=== PATIENT | female | born 1965 | race African-American/Black ===

== ENCOUNTER 2022-05-10 01:06 | Inpatient (IN) | payer MEDICAID ==
[2022-05-10] VITALS (54 sets, daily range): BP systolic 78–127; BP diastolic 50–71
[~2022-05-10] VITALS: Ht 170.2 cm; Wt 92.7 kg
[2022-05-10 01:40] LABS: BASOPHILS % 0.3 % (0.0-2.0); EOSINOPHILS % 0.6 % (0.0-5.0); HEMATOCRIT. 35.2 % (36.0-48.0); HEMOGLOBIN. 11.7 g/dL (12.0-16.0); LYMPHOCYTES % 12.4 % (20.0-50.0); MEAN CORPUSCULAR HEMOGLOBIN 30.1 pg (28.0-32.0); MEAN CORPUSCULAR VOLUME 90.6 fL (81.0-99.0); MEAN PLATELET VOLUME 9.4 fl (7.4-10.4); NEUTROPHILS % 83.7 % (40.0-76.0); PLATELET 235 x1000/uL (130-400); RED BLOOD CELL COUNT 3.89 mill/uL (4.2-5.4); RED CELL DISTRIBUTION WIDTH 13.3 % (11.6-14.6)
[2022-05-10 01:54] LABS: CHLORIDE 106 mEq/L (98-107)
[2022-05-10 02:02] LABS: ETHANOL BLOOD < 10 mg/dL
[2022-05-10] MEDS ORDERED: MIDAZOLAM 100MG/100ML PMX 100 ML IV PRN (02:15)
[2022-05-10] MEDS ORDERED: MIDAZOLAM HCL 100 MG in SODIUM CHLORIDE 0.9% 100 ML IV PRN (02:30)
[2022-05-10] MEDS ORDERED: DEXAMETHASONE 10 MG/ML VIAL IV NR (03:30)
[2022-05-10] MEDS ORDERED: MANNITOL 12.5G (25%) VIAL 50ML IV NR (03:30)
[2022-05-10] MEDS: LEVETIRACETAM 500MG PREMIX 100 ML IV NR ×2 (03:30→04:16)
[2022-05-10] MEDS ORDERED: LEVETIRACETAM 500MG PREMIX 100 ML IV ONE (03:30)
[2022-05-10] MEDS ORDERED: MANNITOL 12.5G (25%) VIAL 50ML IV ONE (04:00)
[2022-05-10] MEDS ORDERED: MANNITOL 20% (20GM/100ML) BAG 500ML PREMIX IV NR (04:00)
[2022-05-10 04:03] LABS: BG BASE EXCESS -0.8 mmol/L (-2.0-2.0); BG CARBOXYHEMOGLOBIN 2.2 % (0.5-1.5); BG DEOXYHEMOGLOBIN 0.9 % (0.0-5.0); BG FRACTION INSPIRED OXYGEN 100; BG HCO3 ACT 24.2 mmol/L (22.0-26.0); BG METHEMOGLOBIN 0.2 % (0.0-1.5); BG OXYGEN SATURATION 99.1 % (92.0-98.5); BG OXYHEMOGLOBIN 96.7 % (94.0-97.0); BG PH 7.388 (7.350-7.450); BG PO2 217.3 mmHg (75.0-100.0); BG SAMPLE SITE RIGHT BRACHIAL; BG TOTAL HEMOGLOBIN 12.5 g/dL (12.0-18.0); BG TOTAL RESPIRATORY RATE 16 b/min; BG VENT MODE VENT - AC
[2022-05-10] MEDS ORDERED: IOHEXOL-350 100 ML BOTTLE ONE (04:08)
[2022-05-10] MEDS ORDERED: LEVETIRACETAM 500MG PREMIX 100 ML IV NR (04:30)
[2022-05-10 04:52] LABS: CLARITY URINE CLEAR (CLEAR); COLOR URINE YELLOW (YELLOW); KETONES URINE NEGATIVE (NEGATIVE); LEUKOCYTE ESTERASE URINE NEGATIVE (NEGATIVE); NITRITE URINE NEGATIVE (NEGATIVE); OCCULT BLOOD URINE 2+ (NEGATIVE); PH URINE 7.5 (4.5-8.0); PROTEIN URINE 3+ (NEGATIVE); SPECIFIC GRAVITY URINE 1.011 (1.005-1.030); UROBILINOGEN URINE 0.2 E.U./dL (0.2-1.0)
[2022-05-10 05:04] LABS: *AMPHETAMINES SCREEN URINE NEGATIVE (NEGATIVE); *BARBITURATES SCREEN URINE NEGATIVE (NEGATIVE); *BENZODIAZEPINES SCREEN URINE NEGATIVE (NEGATIVE); *COCAINE SCREEN URINE PRESUMTIVE POSITIVE (NEGATIVE); CANNABINOID URINE SCREEN NEGATIVE (NEGATIVE); METHADONE URINE SCREEN NEGATIVE (NEGATIVE); OPIATES URINE SCREEN NEGATIVE (NEGATIVE); PHENCYCLIDINE URINE SCREEN NEGATIVE (NEGATIVE)
[2022-05-10] MEDS ORDERED: CLONIDINE 0.1MG TABLET PO PRN (05:45)
[2022-05-10] MEDS ORDERED: NICARDIPINE 50 MG in SODIUM CHLORIDE 0.9% 230 ML IV PRN (05:45)
[2022-05-10] MEDS ORDERED: LABETALOL HCL 100 MG in DEXT 5% WATER 80 ML IV PRN (05:45)
[2022-05-10] MEDS ORDERED: LEVETIRACETAM 500 MG in SODIUM CHLORIDE 0.9% 100 ML IV SCH (05:45)
[2022-05-10] MEDS ORDERED: ACETAMINOPHEN 650MG SUPP PR PRN (05:45)
[2022-05-10] MEDS ORDERED: DEXTROSE 50% WATER 50ML SYRINGE IV PRN (05:45)
[2022-05-10] MEDS ORDERED: KCL 20MEQ/100ML PREMIX 100 ML IV NR (06:30)
[2022-05-10] MEDS ORDERED: DEXTROSE 5% IV PRN (06:30)
[2022-05-10] MEDS: BLOOD SUGAR DIAGNOSTIC STRIP TEST SCH ×4 (06:30→23:19)
[2022-05-10] MEDS ORDERED: LABETALOL HCL IV PRN (06:30)
[2022-05-10] MEDS ORDERED: WATER IV PRN (06:30)
[2022-05-10] MEDS: INSULIN LISPRO 100 UNITS/ML SUBCUT SCH ×4 (07:00→23:19)
[2022-05-10 07:43] LABS: BG BASE EXCESS 1.3 mmol/L (-2.0-2.0); BG CARBOXYHEMOGLOBIN 0.8 % (0.5-1.5); BG DEOXYHEMOGLOBIN 1.3 % (0.0-5.0); BG FRACTION INSPIRED OXYGEN 60; BG HCO3 ACT 23.1 mmol/L (22.0-26.0); BG METHEMOGLOBIN 0.3 % (0.0-1.5); BG OXYGEN SATURATION 98.7 % (92.0-98.5); BG OXYHEMOGLOBIN 97.6 % (94.0-97.0); BG PCO2 27.9 mmHg (35.0-45.0); BG PH 7.536 (7.350-7.450); BG PO2 150.9 mmHg (75.0-100.0); BG SAMPLE SITE RIGHT RADIAL; BG TOTAL HEMOGLOBIN 11.2 g/dL (12.0-18.0); BG VENT MODE VENT - AC/VC
[2022-05-10] MEDS ORDERED: ETOMIDATE 2MG/ML 10ML VIAL IV ONE (07:53)
[2022-05-10] MEDS ORDERED: VECURONIUM BROMIDE 10 MG/VIAL IV ONE (07:53)
[2022-05-10] MEDS ORDERED: SODIUM CHLORIDE 0.9% 10ML VIAL ONE (07:53)
[2022-05-10] MEDS ORDERED: P20 MT (10:40)
[2022-05-10] MEDS ORDERED: AMLO10TA80 MT (10:40)
[2022-05-10] MEDS ORDERED: ACYC200C31 PO (10:40)
[2022-05-10] MEDS ORDERED: HYDR-4134 MT (10:40)
[2022-05-10] MEDS: FAMOTIDINE 20MG/2ML VIAL IV SCH (11:02)
[2022-05-10] MEDS: DEXT 5%/0.45% NACL 1000ML 1,000 ML IV SCH (11:03)
[2022-05-10] MEDS: KCL 20MEQ/100ML PREMIX 100 ML IV NR ×2 (11:03→12:57)
[2022-05-10] MEDS ORDERED: NOREPINEPHRINE 8 MG in DEXT 5% WATER 242 ML IV PRN (16:30)
[2022-05-10 18:52] LABS: HEMATOCRIT. 28.4 % (36.0-48.0); HEMOGLOBIN. 9.4 g/dL (12.0-16.0); MEAN CORPUSCULAR HEMOGLOBIN 29.9 pg (28.0-32.0); MEAN CORPUSCULAR VOLUME 90.1 fL (81.0-99.0); MEAN PLATELET VOLUME 9.6 fl (7.4-10.4); PLATELET 162 x1000/uL (130-400); RED BLOOD CELL COUNT 3.15 mill/uL (4.2-5.4); RED CELL DISTRIBUTION WIDTH 13.4 % (11.6-14.6)
[2022-05-10 19:08] LABS: CREATINE KINASE 182 IU/L (26-192); CREATINE KINASE MB FRACTION 15.6 ng/mL (0.5-3.6)
[2022-05-10 19:33] LABS: FOLIC ACID (FOLATE) SERUM 8.7 ng/mL (>5.38)
[2022-05-10 20:13] LABS: CHLORIDE 105 mEq/L (98-107)
[2022-05-10 20:28] LABS: HDL CHOLESTEROL 64 mg/dL (40-59); LDL CHOLESTEROL 79 mg/dL (5-100); T4 FREE 0.93 ng/dL (0.76-1.46); TOTAL IRON BINDING CAPACITY 193 ug/dL (250-450)
[2022-05-10] MEDS: LEVETIRACETAM 500MG PREMIX 100 ML IV SCH (21:11)
[2022-05-10 22:57] LABS: PLATELET ESTIMATE NORMAL
[2022-05-11] VITALS (41 sets, daily range): BP systolic 71–208; BP diastolic 45–105
[2022-05-11] MEDS: DEXT 5%/0.45% NACL 1000ML 1,000 ML IV SCH (00:19)
[2022-05-11] MEDS: INSULIN LISPRO 100 UNITS/ML SUBCUT SCH ×2 (05:29→11:45)
[2022-05-11] MEDS: BLOOD SUGAR DIAGNOSTIC STRIP TEST SCH ×2 (05:29→11:45)
[2022-05-11] MEDS: FAMOTIDINE 20MG/2ML VIAL IV SCH (08:28)
[2022-05-11] MEDS: LEVETIRACETAM 500MG PREMIX 100 ML IV SCH (09:01)
[2022-05-11] MEDS: IPRATROPIUM/ALBUTEROL 0.5-3(2.5)MG/3ML NEB HHN SCH ×2 (10:20→12:28)
[2022-05-11] MEDS ORDERED: IPRATROPIUM/ALBUTEROL 0.5-3(2.5)MG/3ML NEB HHN PRN (10:30)
[2022-05-11 10:37] LABS: BG BASE EXCESS -5.1 mmol/L (-2.0-2.0); BG CARBOXYHEMOGLOBIN 0.2 % (0.5-1.5); BG DEOXYHEMOGLOBIN 25.6 % (0.0-5.0); BG FRACTION INSPIRED OXYGEN 100; BG HCO3 ACT 21.3 mmol/L (22.0-26.0); BG OXYGEN SATURATION 74.1 % (92.0-98.5); BG OXYHEMOGLOBIN 73.2 % (94.0-97.0); BG PH 7.293 (7.350-7.450); BG PO2 43.7 mmHg (75.0-100.0); BG SAMPLE SITE RIGHT RADIAL; BG TOTAL HEMOGLOBIN 11.9 g/dL (12.0-18.0); BG VENT MODE VENT - AC
== END 2022-05-11 15:02 | DRG 44 ==
LOC: ER 01:06 → MICUSO 04:00
PROVIDERS: ADMIT Internal Medicine; ATTEND Internal Medicine
PROC: 0BH17EZ Insertion of Endotracheal Airway into Trachea, Via Natural or Artificial Opening (ICD-10-PCS; principal; 2022-05-10)
PROC: 5A1935Z Respiratory Ventilation, Less than 24 Consecutive Hours (ICD-10-PCS; 2022-05-10)
DX: I61.9 Nontraumatic intracerebral hemorrhage, unspecified (principal); J96.01 Acute respiratory failure with hypoxia; N17.0 Acute kidney failure with tubular necrosis; I21.4 Non-ST elevation (NSTEMI) myocardial infarction; I95.9 Hypotension, unspecified; J90 Pleural effusion, not elsewhere classified; I11.9 Hypertensive heart disease without heart failure; H91.90 Unspecified hearing loss, unspecified ear; E87.6 Hypokalemia; D64.9 Anemia, unspecified; Z20.822 Contact with and (suspected) exposure to COVID-19; Z91.14 Patient's other noncompliance with medication regimen; W18.11XA Fall from or off toilet without subsequent striking against object, initial encounter; Y93.9 Activity, unspecified; Y92.89 Other specified places as the place of occurrence of the external cause; Y99.8 Other external cause status
CPT/HCPCS: 31500; 36415; 36600; 70496; 70498; 71045; 78610; 80053; 80061; 80305; 80307; 80320; 80329; 81003; 82375; 82550; 82553; 82607; 82728; 82746; 82805; 82962; 83036; 83540; 83550; 83605; 84145; 84439; 84443; 84484; 85025; 87426; 87804; 93005; 93970; 94002; 94003; 94640; 99291; A9512; J1100; J1953; J2150; J3480; J3490; J7060; Q9967; A4315; G0480